=== PATIENT | female | born 1945 | race Caucasian/White ===

== ENCOUNTER 2018-04-01 12:07 | Emergency (ER) | payer MEDICARE, BC ==
--- NOTE | 2018-04-01 12:45 | Emergency Department Record ---
History of Present Illness - General Chief complaint: Nausea, Vomiting, Diarrhea Stated complaint: VOMITING,DIARRHEA Time Seen by Provider: 04/01/18 12:27 Source: Patient Mode of Arrival: Ambulatory Limitations: No limitations - History of Present Illness Initial comments: The patient is here due to a cough and congestion for about a week. She has had hoarseness for the last 4 days along with the coughing. Now she is nauseated and is unable to eat and feels dehydrated. There has been no fever, chills, CP, SOB, or IOANA. MD complaint: Nausea Onset/Timin -: Week(s) Associated Abdominal Pain: No Associated Symptoms: Cough, Malaise, Nausea/vomiting, Shortness of breath, Weakness - Related Data Home Medications Medication Instructions Recorded Confirmed Last Taken Aspirin 81 mg PO DAILY 04/01/18 04/01/18 04/01/18 08:00 Atorvastatin Calcium [Lipitor] 80 mg PO DAILY 04/01/18 04/01/18 04/01/18 08:00 Calcium Carbonate [Calcium] 1,200 mg PO DAILY 04/01/18 04/01/18 04/01/18 08:00 Calcium Citrate/Vitamin D3 25 mg PO DAILY 04/01/18 04/01/18 04/01/18 08:00 [Calcitrate + Vit D Caplet] Diltiazem HCl [Cardizem] 120 mg PO DAILY 04/01/18 04/01/18 04/01/18 08:00 Insulin Aspart [Novolog] 15 units SQ BID 04/01/18 04/01/18 Unknown Insulin Detemir [Levemir] 60 units SQ DAILY 04/01/18 04/01/18 Unknown Levothyroxine Sodium 150 mcg PO DAILY 04/01/18 04/01/18 04/01/18 06:00 Lisinopril 40 mg PO DAILY 04/01/18 04/01/18 04/01/18 08:00 Previous Rx's Medication Instructions Recorded Benzonatate [Tessalon Perle] 100 mg PO TID #20 capsule 04/01/18 Doxycycline Monohydrate [Mondoxyne 100 mg PO BID 7 Days #14 capsule 04/01/18 Nl] Prednisone [Prednisone 20Mg] 40 mg PO DAILY #10 tab 04/01/18 Allergies Allergy/AdvReac Type Severity Reaction Status Date / Time No Known Drug Allergies Allergy Verified 04/01/18 12:33 Travel Screening - Travel/Exposure Within Last 30 Days Have you traveled within the last 30 days?: No - Travel/Exposure Within Last Year Have you traveled outside the [place] in the last year?: No - Additonal Travel Details Have you been exposed to anyone with a communicable illness?: No - Travel Symptoms Symptom Screening: Weakness, Fatigue Review of Systems Constitutional: Reports: Malaise. Denies: Chills, Fever Eyes: Denies: Eye discharge ENT: Reports: Congestion Respiratory: Reports: Cough. Denies: Dyspnea Cardiovascular: Denies: Arrhythmia, Chest pain Endocrine: Denies: Fatigue Gastrointestinal: Denies: Nausea Genitourinary: Denies: Dysuria Musculoskeletal: Denies: Arthralgia Skin: Denies: Bruising Past Medical History - SOCIAL HISTORY Smoking Status: Former smoker Alcohol Use: Rare Drug Use: None - RESPIRATORY Hx Respiratory Disorders: Yes Hx COPD: Yes - CARDIOVASCULAR Hx Cardio Disorders: Yes Hx Edema: Yes (lymphedema BLE) Hx Hypertension: Yes Hx Irregular Heartbeat: Yes (murmur?) - NEURO Hx Neuro Disorders: No - GI Hx GI Disorders: Yes Hx Diverticulitis: Yes (diverticulosis) - Hx Genitourinary Disorders: Yes Comment:: Stage 2 kidney failure - ENDOCRINE Hx Endocrine Disorders: Yes Hx Diabetes: Yes Hx Thyroid Disease: Yes (goiter/removal) - MUSCULOSKELETAL Hx Musculoskeletal Disorders: Yes Hx Arthritis: Yes - PSYCH Hx Psych Problems: Yes Hx Depression: Yes (undiagnosed) - HEMATOLOGY/ONCOLOGY Hx Hematology/Oncology Disorders: Yes Hx Anemia: Yes (as child) Hx Cancer: Yes (breast 2008) Hx Chemotherapy: Yes Hx Radiation Therapy: Yes Family Medical History Any Significant Family History?: Yes Hx Cancer: Mother Hx Diabetes: Children Hx Heart Disease: Mother, Children Hx HTN: Mother Physical Exam - General General Appearance: Alert, Oriented x3, Cooperative, No acute distress - Head Head exam: Atraumatic, Normocephalic, Normal inspection - Eye Eye exam: Normal appearance, PERRL, EOMI. negative: Conjunctival injection - ENT ENT exam: Normal orophraynx Throat exam: Normal inspection. negative: Tonsillar erythema, Tonsillomegaly, Tonsillar exudate - Neck Neck exam: Normal inspection, Full ROM. negative: Lymphadenopathy, Meningismus , Tenderness - Respiratory Respiratory exam: Normal lung sounds bilaterally. negative: Respiratory distress - Cardiovascular Cardiovascular Exam: Regular rate, Normal rhythm, Normal heart sounds - GI/Abdominal GI/Abdominal exam: Soft, Normal bowel sounds. negative: Tenderness - Extremities Extremities exam: Normal inspection, Full ROM, Normal capillary refill. negative: Tenderness - Neurological Neurological exam: Alert, Normal gait. negative: Abnormal gait, Altered, Motor sensory deficit - Psychiatric Psychiatric exam: negative: Anxious Course Vital Signs 04/01/18 12:11 Temperature 98.1 F Pulse Rate 92 H Respiratory 18 Rate Blood Pressure 147/65 Pulse Ox 96 - Reevaluation(s) Reevaluation #1: The patient is resting comfortably and denies any pain or discomfort. I explained that it appears that she has a viral URI due to the CXR being normal, neg fever, WBC elevation and normal Troponin. The patient does have a chronic hx of a LBBB and renal insufficiency which is most likely why her BNP and Trop are mildly elevated. Since we have no old records on the patient I did consult with the patient's [employer] Dr. Adkins and he believes the patient should be transferred to [facility] [place] for further monitoring and testing. The patient is refusing that plan and would like to just go home. I did explain to her that by leaving she could have an [place], stroke, become disabled and even . The patient has proper decision making capacity and accepts the risks. She is to see her PCP GIOVANI and return to the ER for any worsening issues. I did discuss the need for a short course of oral steroids with the patient and she states she has had them in the past and just watches her Sugar and supplements with extra Insulin. Because of that I will discharge on a short course of Prednisone. 04/01/18 14:09 Medical Decision Making - Data Complexity MDM Data: Labs Ordered and/or Reviewed, X-Ray Ordered and/or Reviewed, EKG Ordered and/or Reviewed - Lab Data Result diagrams: 04/01/18 12:49 04/01/18 12:49 - EKG Data -: EKG Interpreted by Me EKG: Unchanged From Previous, LBBB - Radiology Data Radiology results: Report reviewed (CXR: Neg per Rad.) Disposition Disposition: Discharge Clinical Impression: URI, acute Disposition: Against Medical Advice Condition: (2) Stable Instructions: Upper Respiratory Infection (ED) Additional Instructions: Please take the Tessalon along with the Prednisone. ONLY take the Doxycycline if not better in 3 days. Please see your family doctor later this week for recheck and return to the ER for any worsening symptoms or if you change your mind about being admitted. Prescriptions: Benzonatate [Tessalon Perle] 100 mg PO TID #20 capsule Doxycycline Monohydrate [Mondoxyne Nl] 100 mg PO BID 7 Days #14 capsule Prednisone [Prednisone 20Mg] 40 mg PO DAILY #10 tab Forms: Patient Portal Access Time of Disposition: 14:17 Quality - Quality Measures Quality Measures: N/A - Blood Pressure Screening View Details: Yes Does Patient Have Any of the Following: Active Dx of HTN Blood Pressure Classification: Hypertensive Reading Systolic Measurement: 144 Diastolic Measurement: 70 Screening for High Blood Pressure: Patient Exclusion, Hx of HTN [[id number]]
[2018-04-01] MEDS: IPRATROPIUM/ALBUTEROL (0.5MG/3MG) NEB INH ONE (12:48)
[2018-04-01 12:57] LABS: HEMATOCRIT 35.2 % (35.0-47.0); HEMOGLOBIN 10.9 gm/dl (11.6-16.0); MEAN CELL VOLUME 83.6 fl (81-97); MEAN PLATELET VOLUME 10.8 fl (7.4-10.4); PLATELET COUNT 257 K/uL (130-400); RED BLOOD COUNT 4.21 M/uL (3.80-5.40); RED CELL DISTRIBUTION WIDTH 17.2 % (11.5-14.5)
[2018-04-01] MEDS: 0.9 % SODIUM CHLORIDE 1,000 ML BAG IV ONE (12:57)
[2018-04-01 13:10] LABS: BILIRUBIN,TOTAL 0.4 mg/dL (0.2-1.0); CREATININE 1.5 mg/dL (0.5-0.9)
[2018-04-01 13:11] LABS: TOTAL PROTEIN 6.7 g/dL (6.6-8.7)
[2018-04-01 13:15] LABS: MEAN CORPUSCULAR HEMOGLOBIN 25.8 pg (27-33)
[2018-04-01 13:16] LABS: ALBUMIN 3.7 g/dL (4.0-5.0)
[2018-04-01 13:17] LABS: ALB/GLOB RATIO 1.2 (1.1-1.8)
[2018-04-01 13:29] LABS: OVALOCYTES 2+
--- NOTE | 2018-04-02 08:45 | RADIOLOGY REPORT ---
EXAM: CHEST, TWO VIEWS HISTORY: DIFFICULTY BREATHING. TECHNIQUE: Frontal and lateral views of the chest were performed. FINDINGS: The heart size is normal. The lung buckner are clear. No infiltrate or pleural effusion. The osseous structures are normal. Postop surgical clips right lateral chest wall. IMPRESSION: NO ACUTE PULMONARY DISEASE PROCESS. JOB NUMBER: [id number] [facility]
== END 2018-04-01 14:32 | disposition left against medical advice (07) ==
LOC: ER 12:07
DX: J06.9 Acute upper respiratory infection, unspecified (principal); R11.2 Nausea with vomiting, unspecified; R79.89 Other specified abnormal findings of blood chemistry; R19.7 Diarrhea, unspecified; R06.02 Shortness of breath; R53.1 Weakness; N18.2 Chronic kidney disease, stage 2 (mild); I12.9 Hypertensive chronic kidney disease with stage 1 through stage 4 chronic kidney disease, or unspecified chronic kidney disease; E11.22 Type 2 diabetes mellitus with diabetic chronic kidney disease; I44.7 Left bundle-branch block, unspecified; Z87.891 Personal history of nicotine dependence; Z79.4 Long term (current) use of insulin
CPT/HCPCS: 71046; 80053; 83880; 84145; 84484; 85027; 93005; 93010; 99284; J7030